=== PATIENT | female | born 2000 | race Caucasian/White ===

== ENCOUNTER 2024-03-14 07:55 | Inpatient (IN) ==
[2024-03-14] MEDS ORDERED: LIDOCAINE 1% LOCAL 20 ML VIAL INFIL PRN (08:10)
[2024-03-14 08:42] LABS: Hematocrit (blood only) 33.1 % (37.0-47.0); Mean Corpuscular Hemoglobin 26.9 pg (25.0-34.0); Mean Corpuscular Hgb Conc 33.2 g/dL (32.0-36.0); Mean Corpuscular Volume 80.9 fL (80.0-100.0); Mean Platelet Volume 11.1 fL (9.4-12.4); Platelet Count 178 K/uL (130-400); RDW Coefficient of Variation 12.2 % (11.5-14.5); RDW Standard Deviation 35.5 fL (36.4-46.3); Red Blood Count 4.09 M/uL (4.20-5.40); White Blood Count 9.54 K/ul (4.8-10.8)
[2024-03-14] MEDS: SODIUM CHLORIDE 0.9% 1,000 ML IV SCH (10:30)
[2024-03-14] MEDS: OXYTOCIN 30 UNITS/NSS 30 UNITS/500 ML BAG IV PRN ×2 (10:30→18:35)
[2024-03-14] MEDS ORDERED: NALOXONE HCL 1 MG in SODIUM CHLORIDE 0.9% 1,000 ML IV PRN (12:43)
[2024-03-14] MEDS ORDERED: fentaNYL citrate PF 100 MCG/2 ML VIAL EPI PRN (12:43)
[2024-03-14] MEDS ORDERED: LIDOCAINE 2% MPF LOCAL 5 ML VIAL EPI PRN (12:43)
[2024-03-14] MEDS ORDERED: BUPIVACAINE 0.25% PF 30 ML VIAL EPI PRN (12:43)
[2024-03-14] MEDS ORDERED: ONDANSETRON INJ 2 MG/ML 2 ML VIAL IV PRN (12:43)
[2024-03-14] MEDS ORDERED: ROPIVACAINE 0.5% PF 5 MG/ML 20 ML VIAL EPI PRN (12:43)
[2024-03-14] MEDS ORDERED: fentANYL 2 MCG/ML BUPIVacaine 0.125%-NSS 100ML BAG EPI PRN (12:43)
[2024-03-14] MEDS ORDERED: NALBUPHINE HCL INJ 10 MG/ML AMP IV PRN (12:43)
[2024-03-14] MEDS ORDERED: SODIUM CHLORIDE 0.9% PF INJ 10 ML VIAL EPI PRN (12:43)
[2024-03-14] MEDS ORDERED: diphenhydrAMINE 50 MG/ML VIAL IV PRN (12:43)
[2024-03-14] MEDS ORDERED: NALOXONE HCL 0.4 MG/1 ML VIAL/CARP IV PRN (12:43)
[2024-03-14] MEDS ORDERED: ePHEDrine sulfate 50 MG/ML AMP IV PRN (12:43)
--- NOTE | 2024-03-14 12:44 | Anesthesiology Consultation ---
Date of Service March 14, 2024 Assessment & Plan (1) Encounter for pre-operative examination: Chart Review Chart Review: Patient NOT seen in Pre Admission Testing and Acceptable Risk for Labor Epidural Consults Requested none History Height/Weight Height: 5 ft 7 in Weight: 97.976 kg Allergies Allergy/AdvReac Type Severity Reaction Status Date / Time vancomycin Allergy Severe Verified 03/08/24 14:43 Medications Home Medications Medication Instructions Recorded Confirmed Last Taken famotidine 20 mg tablet (Pepcid) See Rx Instructions .Route .COMPLEX 03/14/24 03/14/24 03/14/24 03:00 vits no.124-ferrous fum 1 tab PO 1XD 03/14/24 03/14/24 1 Day Ago 27 mg iron-folic acid 800 mcg ~03/13/24 tablet ( Vitamin) Active Medications Generic Name Dose Route Start Last Admin Trade Name Freq PRN Reason Stop Dose Admin Oxytocin 30 units in 500 mls @ 6 mls/hr 03/14/24 08:10 03/14/24 11:41 Pitocin 30 Units/Nss IV 03/16/24 08:09 0.36 units/hr .Q24H PRN 6 mls/hr Labor Induction/Augmentation Titration Protocol 0.36 UNITS/HR Sodium Chloride 1,000 mls @ 50 mls/hr 03/14/24 10:00 03/14/24 12:05 Nss IV 03/15/24 09:59 999 mls/hr .Q20H FARHEEN Infusion Past Medical History Medical History (Updated 03/14/24 @ 12:44 by Dale Stevenson MD) Encounter for pre-operative examination Exercise / Class Metabolic Activity 1 > 8 Run/Swim/Ski/Tennis Past Family History Family History Mother Dyslipidemia Brother Asthma Grandmother (Maternal) Cerebral aneurysm Past Surgical History Surgical History H/O foot surgery S/P tonsillectomy and adenoidectomy Social History Smoking Status: Never smoker Do You Dip or Chew Tobacco: No Hx Alcohol Use: No Hx Substance Use: No Physical Exam Vital Signs Last Vital Signs Temp 36.7 C 03/14/24 11:41 Pulse 101 H 03/14/24 13:09 Resp 16 03/14/24 11:41 BP 101/69 03/14/24 13:09 Pulse Ox 96 03/14/24 13:05 Testing Laboratory Results 03/14/24 08:24
[2024-03-14] MEDS: fentANYL 2 MCG/ML BUPIVacaine 0.125%-NSS 100ML BAG ONE (13:18)
[2024-03-14] MEDS: BUPIVACAINE 0.25% PF 30 ML VIAL ONE (13:28)
[2024-03-14] MEDS: LIDOCAINE 2%/EPINEPHRINE 1:200,000 20 ML PF ONE (13:29)
[2024-03-14] MEDS: fentaNYL citrate PF 100 MCG/2 ML VIAL ONE (13:48)
[2024-03-14] MEDS: ePHEDrine sulfate 50 MG/ML AMP ONE (16:19)
[2024-03-14] MEDS: SODIUM CHLORIDE 0.9% PF INJ 10 ML VIAL ONE (16:20)
[2024-03-14] MEDS: LIDOCAINE 2%/EPINEPHRINE 1:200,000 20 ML PF EPI STA (16:21)
[2024-03-14] MEDS: BUPIVACAINE 0.25% PF 30 ML VIAL EPI STA (16:21)
[2024-03-14] MEDS: SODIUM CHLORIDE 0.9% PF INJ 10 ML VIAL EPI STA (16:21)
[2024-03-14] MEDS: fentaNYL citrate PF 100 MCG/2 ML VIAL EPI STA (16:21)
--- NOTE | 2024-03-14 17:04 | Delivery Summary ---
Vaginal Delivery Summary Date of Service March 14, 2024 Vaginal Delivery Summary DIAGNOSES: 1. Read intrauterine at 40w6d gestation. 2. Induction of Labor for Postdates. 3. Group B Streptococcus Neg. PROCEDURE: Spontaneous vaginal delivery without laceration. SURGEON: Julieth Stiles MD. FUGITIVE DETECTIVE: None. QUANTITATIVE BLOOD LOSS: 205 mL. COMPLICATIONS: None. PLACENTA: Spontaneous and intact with a 3-vessel cord. DISPOSITION: Stable to labor and delivery. DESCRIPTION: The patient pushed well and brought the head to in TEODORA position. The 's head was allowed to deliver with contraction force and no further active pushing, with the perineum protected during this time. There was one loose nuchal cord. The right shoulder was anterior. The shoulders and body delivered without any difficulty, and the infant was placed o n the maternal abdomen. It was vigorous and moving all extremities, and making respiratory efforts. The cord was doubly clamped by the MD and then cut by the FOB. The placenta delivered spontaneously and was noted to be intact and with a 3VC. The cervix, vagina and perineum were examined and were found to be without defect requiring repair. The fundus was firm and lochia minimal immediately a fter delivery. [facility] Vaginal Delivery Charge Vaginal Delivery Codes: 77673 global code for the antepartum, delivery, and post-
[2024-03-14] MEDS ORDERED: bisacodyL 10 MG SUPP PR PRN (17:18)
[2024-03-14] MEDS ORDERED: BENZOCAINE 20% SPRY 85 APPLN/85 GM CAN EXT PRN (17:18)
[2024-03-14] MEDS ORDERED: HYDROCORTISONE ACETATE 25 MG SUPP PR PRN (17:18)
[2024-03-14] MEDS ORDERED: ACETAMINOPHEN 325 MG TAB PO PRN (17:18)
[2024-03-14] MEDS ORDERED: DIPHTHER/TETAN/PERTUS Vaccine (Tdap, Adol/Adult) 0.5mL IM ONE (17:18)
[2024-03-14] MEDS ORDERED: oxyCODONE/ACETAMINOPHEN 5mg/325mg TAB PO PRN (17:18)
--- NOTE | 2024-03-14 17:25 | Anesthesia Procedure Note ---
Date of Service March 14, 2024 Anesthesia Post Epidural Note Vital Signs Vital Signs: Temp Pulse Resp BP Pulse Ox 36.5 C 91 H 16 120/65 97 03/14/24 15:30 03/14/24 17:05 03/14/24 15:30 03/14/24 17:03 03/14/24 17:05 Notes Mental Status: alert / awake / arousable and participated in evaluation Nausea / Vomiting: adequately controlled Pain: adequately controlled Airway Patency, RR, SpO2: stable & adequate BP & HR: stable & adequate Hydration State: stable & adequate
[2024-03-14 20:17] VITALS: RESP 18
[2024-03-14] MEDS: DOCUSATE SODIUM 100 MG CAP PO SCH (20:23)
[2024-03-14] MEDS: IBUPROFEN 600 MG TAB PO PRN (23:25)
[2024-03-15 05:56] LABS: Hematocrit (blood only) 33.1 % (37.0-47.0); Hemoglobin 10.9 g/dl (12.0-16.0); Mean Corpuscular Hemoglobin 26.6 pg (25.0-34.0); Mean Corpuscular Hgb Conc 32.9 g/dL (32.0-36.0); Mean Corpuscular Volume 80.7 fL (80.0-100.0); Mean Platelet Volume 11.5 fL (9.4-12.4); Platelet Count 179 K/uL (130-400); RDW Coefficient of Variation 12.4 % (11.5-14.5); RDW Standard Deviation 35.8 fL (36.4-46.3); White Blood Count 12.41 K/ul (4.8-10.8)
--- NOTE | 2024-03-15 06:15 | Obstetrical Progress Note ---
Date of Service March 15, 2024 Assessment & Plan (1) Encounter for assessment: Plan: Patient is PPD 1 s/p and doing well - Eating well, voiding well, ambulating well - vitals reviewed and within normal limits - pain well controlled with analgesics - OOB, ambulation, diet progression as tolerated - Blood type: A+, GBS neg, rubella immune - Plan to discharge tomorrow - After discharge, 6 week follow up with OBGYN Admission and Anticipated Discharge Date Admission Date: March 14, 2024 Supervising Physician Co-Signing Physician Notes Resident Physician Supervision Note: I interviewed and examined the patient. Discussed with Dr. Hernandes and agree with findings and plan as documented in the note. Any exceptions or clarifications are listed here: Pt is PPD#1 , desires DC home at 24 hr. Documented By: Julieth Stiles MD, FACOG Subjective 23 yo post- day 1 s/p Ambulation: ambulating normally Voiding: no voiding problems Passing Gas:: Yes Diet Tolerance:: regular diet Lochia:: Small Feeding Type:: breast feeding Current Pain Level:3/10 Resting comfortably this AM in NAD. Denies CARRILLO, CP, SOB, N/V/D, LE pain/swelling. Physical Exam Physical Exam: General: patient resting comfortably, NAD, non-toxic in appearance, answers questions appropriately. Skin: warm, dry, intact HEENT: NC/AT, anicteric sclera, conjunctiva without injection, moist mucus membranes. Heart: +S1/S2, regular, no m/r/g Lungs: equal air entry bilaterally, no rales/rhonchi/wheezes Abd: +BS, soft, NT/ND, uterine fundus firm at umbilicus Ext: warm, no clubbing/cyanosis or edema Neuro: nonfocal, speech intact, no facial droop, moving all extremities. Results & Data Vital Signs (Past 12 Hours) Vital Signs Temp Pulse Pulse Resp BP BP Pulse Ox 03/15/24 04:30 36.8 C 88 18 127/77 96 03/14/24 23:30 36.9 C 93 H 18 119/76 96 03/14/24 19:20 36.5 C 86 18 121/77 97 03/14/24 19:20 03/14/24 19:00 15 03/14/24 19:00 91 H 129/76 03/14/24 18:45 99 H 127/73 03/14/24 18:30 92 H 124/82 O2 Del Method 03/15/24 04:30 Room Air 03/14/24 23:30 Room Air 03/14/24 19:20 Room Air 03/14/24 19:20 Room Air 03/14/24 19:00 03/14/24 19:00 03/14/24 18:45 03/14/24 18:30 Resident Activity Tracking Resident Involvement: Resident Care Provided Care Provided: OB Delivery
[2024-03-15] MEDS: PRENATAL VITAMIN 1 TAB PO SCH (09:05)
[2024-03-15 17:44] VITALS: BP 113/74; PULSE 90; TEMP 98.4; O2SAT 96
[2024-03-15] MEDS ORDERED: bisacodyL 5 MG TABEC PO SCH (20:00)
== END 2024-03-15 17:30 | disposition home or self-care (01) | DRG 807 ==
LOC: 4S1 07:55 → 4E2 19:26